=== PATIENT | female | born 1965 | race Caucasian/White ===

== ENCOUNTER → 2025-01-30 07:14 | Outpatient (REF) | payer OTHER, SELFPAY | LOC: HWWDC 07:14 | PROVIDERS: ATTENDING PHYSICIAN Physician Assistant Medical | DX: Z12.31 Encounter for screening mammogram for malignant neoplasm of breast (principal); Z87.39 Personal history of other diseases of the musculoskeletal system and connective tissue | CPT/HCPCS: 77063; 77067; 77080 ==